=== PATIENT | female | born 1945 | race Caucasian/White ===

== ENCOUNTER 2024-12-23 12:00 | Observation (INO) ==
[2024-12-23 12:49] LABS: Basophils # (Auto) 0.02 K/mcL (0.00-0.30); Basophils % (Auto) 0.4 % (0.0-2.0); Eosinophils # (Auto) 0.11 K/mcL (0.00-0.70); Eosinophils % (Auto) 2.4 % (0.0-7.0); Hematocrit 39.5 % (34.1-44.9); Hemoglobin 12.6 g/dL (11.2-15.7); Lymphocytes # (Auto) 1.43 K/mcL (1.50-4.80); Mean Cell Volume 86.6 fL (80.0-100.0); Mean Corpuscular HGB Conc 31.9 g/dL (31.0-36.0); Mean Platelet Volume 9.1 fL (8.8-12.5); Monocytes # (Auto) 0.32 K/mcL (0.10-0.90); Monocytes % (Auto) 6.9 % (1.0-12.0); Neutrophils % (Auto) 59.3 % (38.0-78.0); Platelet Count 263 K/mcL (140-440); RBC 4.56 M/mcL (3.59-5.38); Red Cell Distribution Width 14.6 % (11.5-14.5); WBC 4.6 K/mcL (4.5-11.0)
[2024-12-23 13:00] LABS: ALT/SGPT 11 U/L (<40); AST/SGOT 19 U/L (<32); Albumin 4.3 gm/dL (3.2-5.2); Albumin/Globulin Ratio 1.8 (1.0-2.3); Alkaline Phosphatase 58 U/L (39-117); Bilirubin,Total 0.4 mg/dL (0.1-1.0); Blood Urea Nitrogen 26 mg/dL (8-23); Calcium 10.1 mg/dL (8.6-10.4); Carbon Dioxide 24 mmol/L (22-30); Chloride 104 mmol/L (96-108); Globulin 2.4 gm/dL (2.2-3.7); Glomerular Filtration Rate 39; Glucose 79 mg/dL (70-105); Potassium 4.5 mmol/L (3.3-5.1); Sodium 141 mmol/L (133-145)
[2024-12-23 13:03] LABS: Prothrombin Time 14.2 sec (11.9-14.5)
[2024-12-23 13:09] LABS: Partial Thromboplastin Time 26.7 sec (20.0-37.0)
[2024-12-23] MEDS: ATORVASTATIN 40 MG TABLET PO ONE (14:18)
[2024-12-23] MEDS: ASPIRIN 81 MG TAB.CHEW CHEWED ONE (14:18)
[2024-12-23] MEDS ORDERED: POLYETHYLENE GLYCOL 3350 17 GM PACKET PO PRN (16:15)
[2024-12-23] MEDS ORDERED: POTASSIUM CHLORIDE 20 MEQ TABLET PO PRN ×2 (16:15)
[2024-12-23] MEDS ORDERED: SENNOSIDES 1 TABLET PO PRN (16:15)
[2024-12-23] MEDS ORDERED: ACETAMINOPHEN 325 MG TABLET PO PRN (16:15)
[2024-12-23] MEDS ORDERED: ONDANSETRON 4 MG/2 ML VIAL IV PRN (16:15)
[2024-12-23] MEDS ORDERED: METOCLOPRAMIDE 10 MG/2 ML VIAL IV PRN (16:15)
[2024-12-23] MEDS ORDERED: IPRATROPIUM/ALBUTEROL 3 ML AMPUL.NEB NEB PRN (16:15)
[2024-12-23] MEDS ORDERED: POTASSIUM CHLORIDE 40 MEQ in DEXTROSE 5% IN WATER 500 ML IV PRN (16:15)
[2024-12-23] MEDS ORDERED: MAGNESIUM SULFATE 2 GM/50 ML BAG IV PRN (16:15)
[2024-12-23 16:52] LABS: HDL Cholesterol 91 mg/dL (>40); LDL Cholesterol,Calculated 134 mg/dL (<100); Non-HDL Cholesterol 146 mg/dL (<130); Triglycerides 61 mg/dL (<150)
[2024-12-23] MEDS: CLOPIDOGREL 75 MG TABLET PO SCH (18:22)
[2024-12-23] MEDS: 0.9 % SODIUM CHLORIDE 1,000 ML IV SCH (18:31)
[2024-12-23] MEDS: OXYBUTYNIN CHLORIDE 5 MG TABLET PO SCH (20:31)
[2024-12-23] MEDS: DOCUSATE SODIUM 100 MG CAPSULE PO SCH (20:31)
[2024-12-23 23:20] LABS: Appearance,Urine Clear (Clear); Bacteria,Urine 0 /hpf (0); Bilirubin,Urine Negative (Negative); Color,Urine Yellow; Glucose,Urine (UA) Negative (Negative); Ketones,Urine Negative (Negative); Leukocyte Esterase,Urine Negative /uL (Negative); Nitrate,Urine Negative (Negative); Protein,Urine Negative (Negative); Urine Blood Negative ery/mcL (Negative); Urine RBC 0 /hpf (0-3); Urine Squamous Epithelial Cell 0 /hpf (0-4); Urine WBC 1 /hpf (0-4); Urobilinogen,Urine Normal
[2024-12-24 06:19] LABS: ALT/SGPT 9 U/L (<40); AST/SGOT 18 U/L (<32); Albumin 3.9 gm/dL (3.2-5.2); Albumin/Globulin Ratio 1.9 (1.0-2.3); Alkaline Phosphatase 51 U/L (39-117); Bilirubin,Direct < 0.2 mg/dL (0-0.3); Bilirubin,Total 0.3 mg/dL (0.1-1.0); Blood Urea Nitrogen 20 mg/dL (8-23); Calcium 9.4 mg/dL (8.6-10.4); Carbon Dioxide 23 mmol/L (22-30); Chloride 110 mmol/L (96-108); Globulin 2.1 gm/dL (2.2-3.7); Glomerular Filtration Rate 43; Glucose 84 mg/dL (70-105); Lactate Dehydrogenase 144 U/L (135-225); Phosphorous 2.6 mg/dL (2.5-4.5); Potassium 4.3 mmol/L (3.3-5.1); Sodium 143 mmol/L (133-145); Triglycerides 56 mg/dL (<150); Uric Acid 5.9 mg/dL (2.5-8.0)
[2024-12-24] MEDS: ASPIRIN 81 MG TAB.CHEW PO SCH (09:06)
[2024-12-24] MEDS: OMEPRAZOLE 20 MG CAPSULE PO SCH (09:07)
[2024-12-24] MEDS: ENOXAPARIN 40 MG/0.4 ML SYRINGE SQ SCH (09:07)
[2024-12-24 10:34] VITALS: O2SAT 97
[2024-12-24 13:17] VITALS: TEMP 98
[2024-12-24] MEDS ORDERED: ATORVASTATIN 40 MG TABLET PO SCH (21:00)
== END 2024-12-24 13:04 | disposition home or self-care (01) ==
LOC: ED 12:00 → INTOOBSV 16:00 → ICU 16:00
PROVIDERS: ADMIT Internal Medicine; ATTEND Internal Medicine